=== PATIENT | female | born 1955 | race Caucasian/White ===

== ENCOUNTER → 2023-04-16 | Outpatient (CLI) | payer BC, OTHER, MEDICARE ==
--- NOTE | 2023-04-16 09:07 | MM ---
Reason for Exam: Follow-up at short interval from prior study. Last screening mammogram was performed 6 month(s) ago. Patient History: Menarche at age 9. Patient has no children. Postmenopausal. Paternal aunt had breast cancer. Risk Values: Clementine 5 year model risk: 2.1%. NCI Lifetime model risk: 6.7%. Prior Study Comparison: 10/09/2022 Bilateral MG 3D screening mammo w/cad, Unknown. 10/13/2022 Right MG 3D work up w/cad RT, Unknown. 10/13/2022 Right US breast workup limited RT - 2, Unknown. Tissue Density: Right: There are scattered fibroglandular densities. Findings: Analyzed By CAD. Slight nipple retraction is unchanged. Some scattered benign round and punctate calcifications are unchanged. Chronic nodularity upper outer quadrant anterior depth and posterior depth remains unchanged. Grouped heterogeneous microcalcifications approximately 10:00 middle depth appear to be increasing. Stereotactic biopsy is recommended. Overall Assessment: Incomplete: need additional imaging evaluation, BI-RAD 0 Management: Diagnostic Breast Ultrasound of the right breast. Electronically signed and approved by: Jesenia Cardenas M.D. Radiologist
--- NOTE | 2023-04-16 09:53 | USB ---
Reason for Exam: Follow-up at short interval from prior study. Patient History: Menarche at age 9. Patient has no children. Postmenopausal. Paternal aunt had breast cancer. Risk Values: Clementine 5 year model risk: 2.1%. NCI Lifetime model risk: 6.7%. Prior Study Comparison: 10/09/2022 Bilateral MG 3D screening mammo w/cad, Unknown. 10/13/2022 Right MG 3D work up w/cad RT, Unknown. 10/13/2022 Right US breast workup limited RT - 2, Unknown. Findings: The whole breast of the right breast, the axilla of the right breast and the retroareolar of the right breast were scanned. A complete US of all four quadrants of the breast common axilla, and retro-areolar region were reviewed. * At the 12:00 position, 8 cm from the nipple, there is a benign 4 mm cyst. * *At the subareolar region, just adjacent to the nipple, there is irregular hypoechoic mass with marginal vascularity measuring 1.3 x 1.3 x 1.1 cm for which biopsy is recommended. * *At the 12:00 position, also 8 cm from the nipple, there is a indeterminate 6 x 6 x 5 mm hypoechoic lesion. Unable to obtain posterior through transmission. This is the lesion that was seen on 10/13/2022 and measured 5 x 5 x 3 mm at that time. Biopsy is recommended. * No additional solid or cystic lesion. * Low axillary tail/intramammary lymph node 11:00 position measures 5 x 4 mm, likely corresponding to the chronic nodularity on mammogram. * No other solid or cystic lesion or axillary lymphadenopathy. Overall Assessment: Suspicious, BI-RAD 4 Management: Stereotactic Core Biopsy of the right breast. Ultrasound Core Biopsy of the right breast. (Total 3 site biopsy). Right-sided stereotactic core needle biopsy for upper-outer quadrant grouped microcalcifications. 2 site ultrasound guided core needle biopsy right breast. Results were given to the patient verbally at the time of exam. Electronically signed and approved by: Jesenia Cardenas M.D. Radiologist
== END | disposition home or self-care (01) ==
LOC: RADMAMWWP 08:35
PROVIDERS: ATTEND Surgery
DX: N60.01 Solitary cyst of right breast (principal); Z78.0 Asymptomatic menopausal state; Z80.3 Family history of malignant neoplasm of breast
CPT/HCPCS: 77061; 77065

== ENCOUNTER → 2023-05-04 | Day surgery (SDC) | payer BC, OTHER ==
--- NOTE | 2023-05-04 08:39 | P.PCN ---
Date of Procedure: 05/04/23 Preoperative Diagnosis: Microcalcifications of concern right breast Postoperative Diagnosis: Same Procedure(s) Performed: Right breast stereotactic core biopsy Anesthesia: local Surgeon: Sharona Lopez Pathology: other (Breast tissue with microcalcifications of concern) Condition: stable Disposition: same day Indications for Procedure: Microcalcifications of concern right breast upper outer quadrant Operative Findings: Radiograph of the specimen reveals microcalcifications of concern Description of Procedure: The patient is a 68-year-old white female who on a mammogram was noted to have upper outer quadrant right breast calcifications of concern. Stereotactic core biopsy was recommended. Risks and benefits of the procedure were discussed with the patient and she wished to proceed. Additionally there are 2 areas noted on ultrasound for which ultrasound-guided core biopsy has also been recommended. The patient was taken to the stereotactic core biopsy room. She was positioned prone on the lo-radtable. A lateral to medial approach was utilized. A sout film was obtained. The area of concern was identified. The lesion was targeted. The breast was prepped using Betadine. 20 mL of 0.5% lidocaine with epinephrine was used to anesthetize the area of concern. A 9-gauge vacuum- assisted core rotating biopsy needle was driven to the correct coordinates. A prefire film was obtained. The needle was noted to be in the correct location. The needle was fired. Post fire film was obtained and the needle was noted to be in the correct location. 14 core biopsy specimens were obtained. Radiograph of the specimens revealed microcalcifications of concern had been sampled. A secure niraj top hat clip was placed. The clip was noted to be in the correct location. The patient tolerated the procedure in stable condition. The specimen was sent to pathology. The patient will follow up with Dr. Ha next week.
== END ==
LOC: RADUSWWP 07:13
PROVIDERS: ATTEND Surgery
DX: Z53.9 Procedure and treatment not carried out, unspecified reason (principal)
CPT/HCPCS: 19084; 88305; 88342

== ENCOUNTER → 2023-05-04 | Day surgery (SDC) | payer BC, OTHER ==
[2023-05-04 07:34] VITALS: RESP 16
[2023-05-04 08:40] VITALS: BP 162/65; PULSE 54; TEMP 98.1
--- NOTE | 2023-05-07 10:09 | MM ---
Date of Procedure: 05/04/23 Preoperative Diagnosis: Microcalcifications of concern right breast Postoperative Diagnosis: Same Procedure(s) Performed: Right breast stereotactic core biopsy Anesthesia: local Surgeon: Sharona Lopez Pathology: other (Breast tissue with microcalcifications of concern) Condition: stable Disposition: same day Indications for Procedure: Microcalcifications of concern right breast upper outer quadrant Operative Findings: Radiograph of the specimen reveals microcalcifications of concern Description of Procedure: The patient is a 68-year-old white female who on a mammogram was noted to have upper outer quadrant right breast calcifications of concern. Stereotactic core biopsy was recommended. Risks and benefits of the procedure were discussed with the patient and she wished to proceed. Additionally there are 2 areas noted on ultrasound for which ultrasound-guided core biopsy has also been recommended. The patient was taken to the stereotactic core biopsy room. She was positioned prone on the lo-radtable. A lateral to medial approach was utilized. A sout film was obtained. The area of concern was identified. The lesion was targeted. The breast was prepped using Betadine. 20 mL of 0.5% lidocaine with epinephrine was used to anesthetize the area of concern. A 9-gauge vacuum- assisted core rotating biopsy needle was driven to the correct coordinates. A prefire film was obtained. The needle was noted to be in the correct location. The needle was fired. Post fire film was obtained and the needle was noted to be in the correct location. 14 core biopsy specimens were obtained. Radiograph of the specimens revealed microcalcifications of concern had been sampled. A secure niraj top hat clip was placed. The clip was noted to be in the correct location. The patient tolerated the procedure in stable condition. The specimen was sent to pathology. The patient will follow up with Dr. Ha next week. SIXTO
--- NOTE | 2023-05-10 09:00 | USB ---
Risk Values: Clementine 5 year model risk: 2.1%. NCI Lifetime model risk: 6.4%. Prior Study Comparison: 10/09/2022 Bilateral MG 3D screening mammo w/cad, Unknown. 10/13/2022 Right MG 3D work up w/cad RT, Unknown. 04/16/2023 Right MG 3D diag mammo w/cad RT, [facility]. Pathology Description: Location: 12 o'clock, upper outer quadrant, posterior. Marker Left Behind. Cores: 3 Skin Nicks: 1 Gauge: 13 The procedure of ultrasound guided core biopsy was explained to the patient. Benefits, alternatives, and risks were discussed. An informed consent was then obtained. The patient was placed in supine positioning for imaging and for the procedure. The overlying skin was prepped and draped in usual sterile fashion. Lidocaine buffered with bicarbonate was used as anesthetic into the skin and subcutaneous tissue up to areas of concern in the right breast at 12:00 8 cm from nipple and retroareolar region.. A haider was made with surgical scalpel. Under ultrasound guidance the lesion at 12:00 8 cm from the nipple was targeted, a 12-gauge vacuum assisted biopsy gun device was used to obtain 3 core samples. Following this, a biopsy butterfly clip was left in lesion. Next, Under ultrasound guidance the retroareolar lesion was targeted, a 12-gauge vacuum assisted biopsy gun device was used to obtain 6 core samples. Following this, a biopsy coil clip was left in lesion. The patient tolerated the procedure well without any immediate complication. The patient was kept in the radiology department for short stay after the procedure and then discharged home in stable condition. Postprocedure mammogram: The patient was transferred to mammography for physician ordered post procedure mammogram for clip placement verification. Impression: Successful, uncomplicated ultrasound guided core biopsy of area of concern in the right breast, full pathology results to follow. Pathology Results: A. RIGHT BREAST, 12:00 POSITION, CORE BIOPSY: Focal fibrocystic change and fibroadenomatoid hyperplasia with rare microcalcification and rare focus suggestive of atypical lobular hyperplasia (see note). Negative for diagnostic features of in situ or invasive carcinoma. B. RIGHT BREAST, POSTERIOR NIPPLE, CORE BIOPSY: Hypocellular and sclerotic bland fibroepithelial lesion having features compatible with fibroadenoma. Focal usual ductal hyperplasia seen. Current specimen negative for diagnostic in situ or invasive carcinoma (see note). Notes In order to confirm the diagnosis for specimen A, immunohistochemistry is performed with appropriate controls on the tissue block for specimen A. E-Cadherin staining is attempted on specimen A, but the minute and rare area suggestive of atypical lobular hyperplasia is mostly unavailable for evaluation, and E-cadherin stains background ductal cells. Clinical correlation with imaging studies is suggested, as deemed clinically appropriate. Correlation with breast biopsy case [id number] is suggested. Pathology Description: Location: middle, retroareolar. Marker Left Behind. Cores: 6 Skin Nicks: 1 Management: Repeat Biopsy of the right breast. High risk lesion, open biopsy. Electronically signed and approved by: DO SIXTO David
== END ==
LOC: RADMAMWWP 07:11
PROVIDERS: ATTEND Surgery
DX: N60.91 Unspecified benign mammary dysplasia of right breast (principal); N60.11 Diffuse cystic mastopathy of right breast
CPT/HCPCS: 19081; A4648; 88305; 88341; 88342

== ENCOUNTER → 2023-05-24 | Outpatient (CLI) | payer BC, OTHER, MEDICARE ==
[2023-05-24 13:52] VITALS: BP 173/50; PULSE 55; RESP 18; TEMP 97.9
--- NOTE | 2023-05-24 14:22 | P.PN ---
Subjective Progress Note Date: 05/24/23 Principal diagnosis: discordant ultrasound core biopsy right breast/atypical lobular hyperplasia right stero biopsy abnormal right breast mammogram and ultrasound; ultrasound core biopsy discordant, mammogram core biopsy atypical lobular hyperplasia Ashlie is a 68 year old white female seen initially in consultation for Dr. Licona regarding a radiographic abnormality in the right breast. She had a bilateral mammogram on 10-09-22; bilateral diagnostic mammograms were rec ommended. Returned on [id number] bilateral diagnostic mammogram. This showed the breast tissue to be heterogeneously dense with 2 well-circumscribed round oval masses in the posterior depth inner aspect left breast which were unchanged since 2016. In the right breast a 6 mm round circumscribed lesion persisted in the middle to posterior depth for which an ultrasound was recommended. Calcifications in the right breast were loosely grouped and felt to be not suspicious. Targeted ultrasound of the 12 o'clock position of the right breast revealed millimeter round hypoechoic avascular structure without posterior acoustic features. No convincing evidence for malignancy in either breast was identified Precautionary diagnostic right breast mammogram and ultrasound in 6 months was recommended. Was personally reviewed with Dr. Cardenas from radiology. The patient did not feel any new lumps masses or nodules of concern in either breast. She is complaining of some intermittent right nipple inversion. She is not complaining of any nipple discharge. 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 It was an open biopsy. She is not complaining of any infection or trauma in her breast. The patient on 04-16-23 underwent a right breast diagnositc mammogram and ultrasound. Stero biopay and ultrasound core biopsy recommended. These were done on 05-04-23. The patoholgy for the ultrasound core biopsy was discordant, reviewed with radiology and the stero biopsy atypical lobular hyperplasia. Tolerated the biopsies without difficulty. The genetic testing performed which showed a variant of on certain significance. We have discussed chemoprophylaxis and at this time the patient is waiting for the biopsy results from her needle localization and excision from the discordant lesion in the stereotactic core biopsy. Clementine risk 5 year 2.1% MCI lifetime risk: 6.7% Caffeine:3-4 cups of tea/day nicotine: none chocolate: daily BCP: none Family History: sister: pancreatic mother: pancreatic cancer father: lung brother: Lung, esophageal, brain, bladder smoker maternal grandmother: uterine Hormonal History: menarche: 9 G0 menopause: 56 hormone: none Surgical History: right breast biopsy Medical History: diabetic HTN Social History: nicotine: none alcohol: occasional drugs:none - Constitutional Constitutional: Denies chills, Denies fever - EENT Comment: cataract bilateral Eyes: denies blurred vision, denies pain Ears: deny: decreased hearing, tinnitus Ears, nose, mouth and throat: Denies headache, Denies sore throat - Breasts Breasts: bilateral: as per HPI - Cardiovascular Cardiovascular: Denies chest pain, Denies shortness of breath - Respiratory Respiratory: Denies cough - Gastrointestinal Gastrointestinal: Denies abdominal pain, Denies diarrhea, Denies nausea, Denies vomiting - Genitourinary (Female) Genitourinary: Denies dysuria, Denies hematuria - Menstruation Menstruation: Reports as per HPI - Musculoskeletal Musculoskeletal: Denies myalgias - Integumentary Integumentary: Denies pruritus, Denies rash - Neurological Neurological: Reports numbness, Denies weakness - Psychiatric Psychiatric: Denies anxiety, Denies depression - Endocrine Endocrine: Reports as per HPI - Hematologic/Lymphatic Comment: none - Allergic/Immunologic Allergic/Immunologic: Reports seasonal allergies Medications and Allergies Home Medications Medication Instructions Recorded Confirmed Type Aspirin [Children's Aspirin] 81 mg PO DAILY 02/02/23 02/02/23 History Atorvastatin [Lipitor] 40 mg PO DAILY 02/02/23 02/02/23 History Budesonide [Pulmicort] 1 spray NASAL DAILY 02/02/23 02/02/23 History Diltiazem Cd [Cardizem CD] 240 mg PO DAILY 02/02/23 02/02/23 History Levocetirizine Dihydrochloride 5 mg PO DAILY 02/02/23 02/02/23 History [Xyzal] Montelukast [Singulair] 10 mg PO DAILY 02/02/23 02/02/23 History Multivitamin/Iron/Folic Acid 1 tab PO DAILY 02/02/23 02/02/23 History [Centrum Adults Tablet] Pantoprazole Sodium 40 mg PO DAILY 02/02/23 02/02/23 History hydrALAZINE HCL 50 mg PO DAILY 02/02/23 02/02/23 History Objective - Vital Signs Vital signs: Vital Signs Temp 97.9 F 05/24/23 13:48 Pulse 55 L 05/24/23 13:48 Resp 18 05/24/23 13:48 BP 173/50 05/24/23 13:48 Pulse Ox 97 05/24/23 13:48 FiO2 Intake & Output 05/23/23 05/24/23 05/24/23 18:59 06:59 18:59 Weight 85.275 kg - Constitutional General appearance: Present: cooperative - EENT Eyes: Present: EOMI ENT: Present: hearing grossly normal - Neck Neck: Present: normal ROM - Respiratory Respiratory: bilateral: CTA - Cardiovascular Rhythm: regular Heart sounds: normal: S1, S2 - Gastrointestinal General gastrointestinal: Present: soft - Integumentary Integumentary: Present: normal turgor - Musculoskeletal Musculoskeletal: Present: gait normal - Psychiatric Psychiatric: Present: A&O x's 3, appropriate affect, intact judgment & insight - Additional findings Additional findings: Breast Exam: BRA: 42C Inspection: bilateral grade 2/3 ptosis palpation: right breast: Multi-positional exam dense breast fibrocystic changes no dominant masses or nodules of concern Right axilla: No adenopathy of concern Left breast: Multi-positional exam fibrocystic changes no dominant masses or nodules of concern Left axilla: No adenopathy of concern Assessment and Plan Assessment: Impression: Stereotactic core biopsy right breast atypical lobular hyperplasia Ultrasound core biopsy right breast discordant reviewed with radiology recommended needle local excision Plan: Needle localization and excisional biopsy of discordant lesion on ultrasound posterior to right nipple areolar complex Needle localization and excision of atypical lobular hyperplasia secondary to the fact that we will be doing surgery in the area for the lesion above We have discussed chemoprophylaxis probable await the results of the pathology Risks and benefits of the procedure discussed with the patient. Risks include but are not limited to bleeding, infection, reaction to the anesthetic. If this were to be discordant again with the margins were to be positive for malignancy further surgery may be necessary. The patient understands and wishes to proceed. CC: Dr. Licona
== END ==
LOC: WWCWWP 13:10
PROVIDERS: ATTEND Surgery
DX: E11.9 Type 2 diabetes mellitus without complications (principal); I10 Essential (primary) hypertension; Z85.3 Personal history of malignant neoplasm of breast

== ENCOUNTER → 2023-07-06 | Outpatient (CLI) | payer BC, OTHER ==
[2023-07-06 14:03] VITALS: BP 149/69; PULSE 56; RESP 16; TEMP 98.3
--- NOTE | 2023-07-06 14:06 | P.PN ---
Subjective Progress Note Date: 07/06/23 discordant ultrasound core biopsy right breast/atypical lobular hyperplasia right stero biopsy abnormal right breast mammogram and ultrasound; ultrasound core biopsy discordant, mammogram core biopsy atypical lobular hyperplasia Ashlie is a 68 year old white female seen initially in consultation for Dr. Licona regarding a radiographic abnormality in the right breast. She had a bilateral mammogram on 10-09-22; bilateral diagnostic mammograms were recommended. Returned on [id number] bilateral diagnostic mammogram. This showed the breast tissue to be heterogeneously dense with 2 well-circumscribed round oval masses in the posterior depth inner aspect left breast which were unchanged since 2016. In the right breast a 6 mm round circumscribed lesion persisted in the middle to posterior depth for which an ultrasound was recommended. Calcifications in the right breast were loosely grouped and felt to be not suspicious. Targeted ultrasound of the 12 o'clock position of the right breast revealed millimeter round hypoechoic avascular structure without posterior acoustic features. No convincing evidence for malignancy in either breast was identified Precautionary diagnostic right breast mammogram and ultrasound in 6 months was recommended. Was personally reviewed with Dr. Cardenas from radiology. The patient did not feel any new lumps masses or nodules of concern in either breast. She is complaining of some intermittent right nipple inversion. She is not complaining of any nipple discharge. 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 It was an open biopsy. She is not complaining of any infection or trauma in her breast. The patient on 04-16-23 underwent a right breast diagnositc mammogram and ultrasound. Stero biopay and ultrasound core biopsy recommended. These were done on 05-04-23. The patoholgy for the ultrasound core biopsy was discordant, reviewed with radiology and the stero biopsy atypical lobular hyperplasia. Tolerated the biopsies without difficulty. The genetic testing performed which showed a variant of on certain significance. We have discussed chemoprophylaxis and at this time the patient is waiting for the biopsy results from her needle localization and excision from the discordant lesion and the stereotactic core biopsy. [place] risk 5 year 2.1% MCI lifetime risk: 6.7% Caffeine:3-4 cups of tea/day nicotine: none chocolate: daily BCP: none Family History: sister: pancreatic mother: pancreatic cancer father: lung brother: Lung, esophageal, brain, bladder smoker maternal grandmother: uterine Hormonal History: menarche: 9 G0 menopause: 56 hormone: none Surgical History: right breast biopsy Medical History: diabetic HTN Social History: nicotine: none alcohol: occasional drugs:none - Constitutional Constitutional: Denies chills, Denies fever - EENT Comment: cataract bilateral Eyes: denies blurred vision, denies pain Ears: deny: decreased hearing, tinnitus Ears, nose, mouth and throat: Denies headache, Denies sore throat - Breasts Breasts: bilateral: as per HPI - Cardiovascular Cardiovascular: Denies chest pain, Denies shortness of breath - Respiratory Respiratory: Denies cough - Gastrointestinal Gastrointestinal: Denies abdominal pain, Denies diarrhea, Denies nausea, Denies vomiting - Genitourinary (Female) Genitourinary: Denies dysuria, Denies hematuria - Menstruation Menstruation: Reports as per HPI - Musculoskeletal Musculoskeletal: Denies myalgias - Integumentary Integumentary: Denies pruritus, Denies rash - Neurological Neurological: Reports numbness, Denies weakness - Psychiatric Psychiatric: Denies anxiety, Denies depression - Endocrine Endocrine: Reports as per HPI - Hematologic/Lymphatic Comment: none - Allergic/Immunologic Allergic/Immunologic: Reports seasonal allergies Medications and Allergies Home Medications Medication Instructions Recorded Confirmed Type Aspirin [Children's Aspirin] 81 mg PO DAILY 02/02/23 02/02/23 History Atorvastatin [Lipitor] 40 mg PO DAILY 02/02/23 02/02/23 History Budesonide [Pulmicort] 1 spray NASAL DAILY 02/02/23 02/02/23 History Diltiazem Cd [Cardizem CD] 240 mg PO DAILY 02/02/23 02/02/23 History Levocetirizine Dihydrochloride 5 mg PO DAILY 02/02/23 02/02/23 History [Xyzal] Montelukast [Singulair] 10 mg PO DAILY 02/02/23 02/02/23 History Multivitamin/Iron/Folic Acid 1 tab PO DAILY 02/02/23 02/02/23 History [Centrum Adults Tablet] Pantoprazole Sodium 40 mg PO DAILY 02/02/23 02/02/23 History hydrALAZINE HCL 50 mg PO DAILY 02/02/23 02/02/23 History Objective - Vital Signs Vital signs: Intake & Output 07/05/23 07/06/23 07/06/23 18:59 06:59 18:59 Weight 84.822 kg - Constitutional General appearance: Present: cooperative - EENT Eyes: Present: EOMI ENT: Present: hearing grossly normal - Neck Neck: Present: normal ROM - Respiratory Respiratory: bilateral: CTA - Cardiovascular Heart sounds: normal: S1, S2 - Gastrointestinal General gastrointestinal: Present: soft - Integumentary Integumentary: Present: normal turgor - Musculoskeletal Musculoskeletal: Present: gait normal - Psychiatric Psychiatric: Present: A&O x's 3, appropriate affect, intact judgment & insight - Additional findings Additional findings: Breast Exam: BRA: 42C Inspection: bilateral grade 2/3 ptosis palpation: right breast: Multi-positional exam dense breast fibrocystic changes no dominant masses or nodules of concern Right axilla: No adenopathy of concern Left breast: Multi-positional exam fibrocystic changes no dominant masses or nodules of concern Left axilla: No adenopathy of concern Assessment and Plan Assessment: Impression: Stereotactic core biopsy right breast atypical lobular hyperplasia Ultrasound core biopsy right breast discordant reviewed with radiology recommended needle local excision Plan: Needle localization and excisional biopsy of discordant lesion on ultrasound posterior to right nipple areolar complex Needle localization and excision of atypical lobular hyperplasia secondary to the fact that we will be doing surgery in the area for the lesion above We have discussed chemoprophylaxis probable await the results of the pathology Risks and benefits of the procedure discussed with the patient. Risks include but are not limited to bleeding, infection, reaction to the anesthetic. If this were to be discordant again with the margins were to be positive for malignancy further surgery may be necessary. The patient understands and wishes to edgar dJimmy Medical clearance Dr. Licona CC: Dr. Licona
--- NOTE | 2023-07-06 14:10 | P.PN ---
Progress Note - Text Progress Note Date: 07/06/23 Dear [place] on aging, Please note that Ashlie Kirby is undergoing surgery on 5250. She will be able to return to work on 9823. Thank you, Dr. Sharona Lopez
== END ==
LOC: WWCWWP 13:31
PROVIDERS: ATTEND Surgery
DX: N60.91 Unspecified benign mammary dysplasia of right breast (principal); E11.9 Type 2 diabetes mellitus without complications; I10 Essential (primary) hypertension; Z85.3 Personal history of malignant neoplasm of breast

== ENCOUNTER → 2023-07-31 | Day surgery (SDC) | payer BC, OTHER ==
--- NOTE | 2023-07-26 14:19 | P.PN ---
Subjective Progress Note Date: 07/26/23 discordant ultrasound core biopsy right breast/atypical lobular hyperplasia right stero biopsy abnormal right breast mammogram and ultrasound; ultrasound core biopsy discordant, mammogram core biopsy atypical lobular hyperplasia Ashlie is a 68 year old white female seen initially in consultation for Dr. Licona regarding a radiographic abnormality in the right breast. She had a bilateral mammogram on 10-09-22; bilateral diagnostic mammograms were recommended. Returned on [id number] bilateral diagnostic mammogram. This showed the breast tissue to be heterogeneously dense with 2 well-circumscribed round oval masses in the posterior depth inner aspect left breast which were unchanged since 2016. In the right breast a 6 mm round circumscribed lesion persisted in the middle to posterior depth for which an ultrasound was recommended. Calcifications in the right breast were loosely grouped and felt to be not suspicious. Targeted ultrasound of the 12 o'clock position of the right breast revealed millimeter round hypoechoic avascular structure without posterior acoustic features. No convincing evidence for malignancy in either breast was identified Precautionary diagnostic right breast mammogram and ultrasound in 6 months was recommended. Was personally reviewed with Dr. Cardenas from radiology. The patient did not feel any new lumps masses or nodules of concern in either breast. She is complaining of some intermittent right nipple inversion. She is not complaining of any nipple discharge. 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 It was an open biopsy. She is not complaining of any infection or trauma in her breast. The patient on 04-16-23 underwent a right breast diagnositc mammogram and ultrasound. Stero biopay and ultrasound core biopsy recommended. These were done on 05-04-23. The patoholgy for the ultrasound core biopsy was discordant, reviewed with radiology and the stero biopsy atypical lobular hyperplasia. Tolerated the biopsies without difficulty. The genetic testing performed which showed a variant of on certain significance. We have discussed chemoprophylaxis and at this time the patient is waiting for the biopsy results from her needle localization and excision from the discordant lesion and the stereotactic core biopsy. Clementine risk 5 year 2.1% MCI lifetime risk: 6.7% Caffeine:3-4 cups of tea/day nicotine: none chocolate: daily BCP: none Family History: sister: pancreatic mother: pancreatic cancer father: lung brother: Lung, esophageal, brain, bladder smoker maternal grandmother: uterine Hormonal History: menarche: 9 G0 menopause: 56 hormone: none Surgical History: right breast biopsy Medical History: diabetic HTN Social History: nicotine: none alcohol: occasional drugs:none - Constitutional Constitutional: Denies chills, Denies fever - EENT Comment: cataract bilateral Eyes: denies blurred vision, denies pain Ears: deny: decreased hearing, tinnitus Ears, nose, mouth and throat: Denies headache, Denies sore throat - Breasts Breasts: bilateral: as per HPI - Cardiovascular Cardiovascular: Denies chest pain, Denies shortness of breath - Respiratory Respiratory: Denies cough - Gastrointestinal Gastrointestinal: Denies abdominal pain, Denies diarrhea, Denies nausea, Denies vomiting - Genitourinary (Female) Genitourinary: Denies dysuria, Denies hematuria - Menstruation Menstruation: Reports as per HPI - Musculoskeletal Musculoskeletal: Denies myalgias - Integumentary Integumentary: Denies pruritus, Denies rash - Neurological Neurological: Reports numbness, Denies weakness - Psychiatric Psychiatric: Denies anxiety, Denies depression - Endocrine Endocrine: Reports as per HPI - Hematologic/Lymphatic Comment: none - Allergic/Immunologic Allergic/Immunologic: Reports seasonal allergies Medications and Allergies Home Medications Medication Instructions Recorded Confirmed Type Aspirin [Children's Aspirin] 81 mg PO DAILY 02/02/23 02/02/23 History Atorvastatin [Lipitor] 40 mg PO DAILY 02/02/23 02/02/23 History Budesonide [Pulmicort] 1 spray NASAL DAILY 02/02/23 02/02/23 History Diltiazem Cd [Cardizem CD] 240 mg PO DAILY 02/02/23 02/02/23 History Levocetirizine Dihydrochloride 5 mg PO DAILY 02/02/23 02/02/23 History [Xyzal] Montelukast [Singulair] 10 mg PO DAILY 02/02/23 02/02/23 History Multivitamin/Iron/Folic Acid 1 tab PO DAILY 02/02/23 02/02/23 History [Centrum Adults Tablet] Pantoprazole Sodium 40 mg PO DAILY 02/02/23 02/02/23 History hydrALAZINE HCL 50 mg PO DAILY 02/02/23 02/02/23 History Objective - Constitutional General appearance: Present: cooperative - EENT Eyes: Present: EOMI ENT: Present: hearing grossly normal - Neck Neck: Present: normal ROM - Respiratory Respiratory: bilateral: CTA - Cardiovascular Rhythm: regular Heart sounds: normal: S1, S2 - Integumentary Integumentary: Present: normal - Musculoskeletal Musculoskeletal: Present: gait normal - Psychiatric Psychiatric: Present: A&O x's 3, appropriate affect, intact judgment & insight - Additional findings Additional findings: Breast Exam: BRA: 42C Inspection: bilateral grade 2/3 ptosis palpation: right breast: Multi-positional exam dense breast fibrocystic changes no dominant masses or nodules of concern Right axilla: No adenopathy of concern Left breast: Multi-positional exam fibrocystic changes no dominant masses or nodules of concern Left axilla: No adenopathy of concern Assessment and Plan Assessment: Impression: Stereotactic core biopsy right breast atypical lobular hyperplasia Ultrasound core biopsy right breast discordant reviewed with radiology recommended needle local excision Plan: Needle localization and excisional biopsy of discordant lesion on ultrasound posterior to right nipple areolar complex Needle localization and excision of atypical lobular hyperplasia on stereotactic core biopsy right breast secondary to the fact that we will be doing surgery in the area for the lesion above We have discussed chemoprophylaxis probable await the results of the pathology Risks and benefits of the procedure discussed with the patient. Risks include but are not limited to bleeding, infection, reaction to the anesthetic. If this were to be discordant again or the margins were to be positive for malignancy further surgery may be necessary. The patient understands and wishes to proceed. Medical clearance Dr. Licona CC: Dr. Licona Additional CC's: William Licona
[~2023-07-31] MED LIST: ALPRAZolam 0.25 MG TAB ONE; DEXAMETHASONE SOD PHOSPHATE 4 MG/ML 1 ML VIAL IVP ONE; HEPARIN SODIUM,PORCINE/PF 5,000 UNIT/0.5 ML SYRINGE SQ PRN; HYDROmorphone (PF) 1 MG/ML ONE; HYDROmorphone 0.5 MG/0.5 ML SYRINGE IVP PRN; KETOROLAC 15 MG/ML 1 ML VIAL ONE; LACTATED RINGERS 1,000 ML IV ONE; LACTATED RINGERS 1,000 ML IV SCH; LIDOCAINE 1% (10MG/ML) FOR IV START INTRADERMA PRN; LIDOCAINE 1% INJ 10MG/ML (20 ML MDV) SQ ONE; LIDOCAINE 2% INJ 20 MG/ML (2 ML VIAL) ONE; MIDAZOLAM 2 MG/2 ML VIAL ONE; ONDANSETRON 4 MG/2 ML VIAL IVP ONE; ONDANSETRON 4 MG/2 ML VIAL ONE; PHENYLEPHRINE-0.9% NACL SYG 1,000 MCG/10 ML SYRINGE ONE; PROPOFOL 10 MG/ML 20 ML VIAL IV ONE; fentaNYL (PF) 50 MCG/ML 2 ML AMP ONE
[2023-07-31 11:19] VITALS: RESP 16
[2023-07-31 12:46] LABS: Glucose,Whole Blood 115 mg/dL (70-110)
--- NOTE | 2023-07-31 15:33 | P.OP ---
Date of Procedure: 07/31/23 Preoperative Diagnosis: Atypical lobular hyperplasia 2 sites right breast, discordant core biopsy posterior area right breast Postoperative Diagnosis: Same Procedure(s) Performed: Needle localization superior and lateral area of atypical hyperplasia right breast with placement of make C, needle localization via ultrasound on the posterior areolar area right breast Anesthesia: JORGE AA Surgeon: Sharona Lopez Estimated Blood Loss (ml): 8 IV fluids (ml): 1,000 Pathology: other (Breast tissue removed 3 sites right breast lateral superior and posterior) Condition: stable Disposition: same day Indications for Procedure: Sites right breast atypical lobular hyperplasia, post aerolar biopsy discordant Operative Findings: Fibrofatty breast tissue Description of Procedure: The patient is a 68-year-old white female status post area biopsy of 2 areas in the right breast which revealed atypical lobular hyperplasia. Additionally a posterior aerolar areawas sampled which was felt to be discordan t. Recommendation was for needle localization and excisional biopsy of the areas of atypical lobular hyperplasia as well as the discordant right posterior areolar area. Preoperatively she was seen in the radiology department where needle localization of the areas were performed as well as mag seed placement in the lateral and superior peripheral lesions. The patient was then brought to the operative suite. Following induction of anesthesia the right breast was prepped and draped in a sterile fashion. A periareolar incision was made. The needle which had been placed by ultrasound localization was identified and circumferential dissection was performed. Ultrasound of the specimen revealed the area of concern had been removed. The same incision was utilized and using the mag seed probe the area of increased activity in the lateral breast was identified. The area was grasped using an Allis clamp. The needle was brought out into the incision. The needle and the area were resected. Radiograph revealed that the lesion and the needle and the clip were all removed. Following this the superior lesion was approached. Using the mag seed probe the area of greatest activity was identified and this area was excised. Upon excision the clip was not identified. We will therefore obtain more tissue.
--- NOTE | 2023-07-31 16:14 | P.DS ---
Providers Attending physician: Sharona Lopez Primary care physician: William Licona Plan - Discharge Summary Discharge Rx Participant: No New Discharge Prescriptions: New HYDROcodone/APAP 5-325MG [[place] 5] 1 - 2 each PO Q6HR PRN #20 tab PRN Reason: Pain No Action hydrALAZINE HCL 50 mg PO BID Pantoprazole Sodium 40 mg PO BID Budesonide [Pulmicort] 1 spray NASAL DAILY Aspirin [Children's Aspirin] 81 mg PO HS Multivitamin/Iron/Folic Acid [Centrum Adults Tablet] 1 tab PO QAM Montelukast [Singulair] 10 mg PO HS Diltiazem Cd [Cardizem CD] 240 mg PO QAM Atorvastatin [Lipitor] 40 mg PO HS Discharge Medication List Aspirin [Children's Aspirin] 81 mg PO HS 02/02/23 [History] Atorvastatin [Lipitor] 40 mg PO HS 02/02/23 [History] Budesonide [Pulmicort] 1 spray NASAL DAILY 02/02/23 [History] Diltiazem Cd [Cardizem CD] 240 mg PO QAM 02/02/23 [History] Montelukast [Singulair] 10 mg PO HS 02/02/23 [History] Multivitamin/Iron/Folic Acid [Centrum Adults Tablet] 1 tab PO QAM 02/02/23 [History] Pantoprazole Sodium 40 mg PO BID 02/02/23 [History] hydrALAZINE HCL 50 mg PO BID 02/02/23 [History] HYDROcodone/APAP 5-325MG [[place] 5] 1 - 2 each PO Q6HR PRN #20 tab 07/31/23 [Rx] Follow up Appointment(s)/Referral(s): Sharona Lopez MD [STAFF PHYSICIAN] - 08/09/23 4:00 pm Activity/Diet/Wound Care/Special Instructions: do not drive for 24 hours from discharge, do not drive if taking narcotic pain medicine may shower after 48 hours wear bra at all times Discharge Disposition: HOME SELF-CARE
[2023-07-31 16:40] VITALS: TEMP 97.5
[2023-07-31 18:21] VITALS: BP 159/73; PULSE 74
--- NOTE | 2023-08-07 10:29 | MM ---
Risk Values: Clementine 5 year model risk: 6.1%. NCI Lifetime model risk: 17.6%. Pathology Description: Location: retroareolar. Needle Type: 7 cm Kopan Pathology Description: Approach: Lateral to Medial Needle Type: 9 cm Kopan MAG SEED SKIN MARKED WITH 2 BBS...SITE B. Pathology Description: Location: middle. Approach: CC FA Needle Type: 9 cm Kopan The procedure of needle localization with wire placement and than surgical excision was explained to the patient. Benefits, alternatives, and risks were discussed. An informed consent was then obtained. The pathology that was targeted includes 1) Lateral TopHat clip at the site of biopsy-proven ALH. 2) 12:00 butterfly clip at the site of biopsy-proven ALH. 3) Subareolar coil clip at the biopsy proven fibroadenoma that has a suspicious ultrasound appearance. 1) The shortest pathway for procedure was chosen. Shortest pathway was a lateral approach. The overlying skin was prepped and draped in usual sterile fashion. Lidocaine was used as anesthetic into the skin and subcutaneous tissue up to the level of area of concern. A 7 cm needle was used parallel with a magnetic seed marker. They were placed via a lateral approach under mammographic guidance. Subsequent 90 degrees mammogram show the needle to be in satisfactory position relative to the targeted area. At this point, wire/seed was placed and the needle was withdrawn. The wire was fixed to patient's skin. Images were marked for surgeon. Targeted seed, TopHat clip, and wire are identified in the specimen mammogram. 2) The shortest pathway for procedure was chosen. Shortest pathway was superior approach. The overlying skin was prepped and draped in usual sterile fashion. Lidocaine was used as anesthetic into the skin and subcutaneous tissue up to the level of area of concern. A 12 cm needle was used in conjunction with a magnetic seed marker. They were placed via a superior approach under mammographic guidance. Subsequent 90 degrees mammogram show the needle to be in satisfactory position relative to the targeted area. At this point, the wire/seed were placed and the needle was withdrawn. The wire was fixed to patient's skin. Images were marked for surgeon. Targeted seed and wire are identified in the specimen mammogram. The butterfly clip was not identified. 2 additional specimens were submitted and show no clip. Results were relayed to the OR. Decision is made to perform four-month follow-up mammogram for close surveillance. 3) A lateral approach was utilized to be ultrasound guidance and a 7 cm Kopan's needle was placed through the subareolar mass. The overlying skin was prepped and draped in usual sterile fashion. Lidocaine was used as anesthetic into the skin and subcutaneous tissue up to the level of area of concern. At this point, wire was placed and the needle was withdrawn. The wire was fixed to patient's skin. Images were marked for surgeon. Targeted mass, coil clip, and wire are present within the specimen mammogram. The patient tolerated the procedure well without any immediate complication. The patient was kept in the radiology department for short stay after the procedure and then taken to surgery for surgical excision. The patient was kept in hospital for short stay after the procedure and then discharged home in stable condition. IMPRESSION: Successful, uncomplicated needle localization with wire placement and surgical excision: 1. Lateral ALH/TopHat clip 2. 12:00 ALH/Butterfly clip (note that the clip was not found in the multiple submitted specimens. Decision is made to perform a 4 month follow-up surveillance mammogram). 3. Subareolar Fibroadenoma/Coil clip Full pathology results to follow. Pathology Results: Result: Benign, Fibrocystic change. A. 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 Background fibrocystic changes and previous biopsy site. B. LATERAL LESION RIGHT BREAST, NEEDLE LOCALIZATION EXCISION: Benign breast with fibrocystic changes including moderate to florid usual type ductal hyperplasia, previous biopsy site and a small intraductal papilloma not involving the margin. C. SUPERIOR LESION RIGHT BREAST, NEEDLE LOCALIZATION EXCISION: Nodular scar with fat necrosis, chronic inflammation, histiocytes and calcifications. Background fibrocystic changes including moderate to florid usual type ductal hyperplasia and fibroadenoma. Negative for malignancy. D. ADDITIONAL SUPERIOR LESION RIGHT BREAST, EXCISION: Benign breast tissue with fibrocystic changes. E. ADDITIONAL BREAST TISSUE, RIGHT BREAST, EXCISION: Benign breast tissue with focal scar/fat necrosis, inflammation and background fibrocystic changes. Overall Assessment: Benign Management: Diagnostic Mammogram of the right breast in 6 months. Electronically signed and approved by: Jesenia Cardenas M.D. Radiologist
== END | disposition home or self-care (01) ==
LOC: OR 09:27
PROVIDERS: ATTEND Surgery
DX: D24.1 Benign neoplasm of right breast (principal); N60.91 Unspecified benign mammary dysplasia of right breast; I10 Essential (primary) hypertension; E78.5 Hyperlipidemia, unspecified; K21.9 Gastro-esophageal reflux disease without esophagitis; N64.1 Fat necrosis of breast; L90.5 Scar conditions and fibrosis of skin; Z85.3 Personal history of malignant neoplasm of breast; Z79.82 Long term (current) use of aspirin; Z79.899 Other long term (current) drug therapy; Z79.84 Long term (current) use of oral hypoglycemic drugs
CPT/HCPCS: 88307; 76098; 19285; C1819 ×2; J2250; J1100; J0690; J2405; J2001 ×2; J3010; J1170; J1885; J2704; J1644; J2371

== ENCOUNTER → 2023-08-09 | Outpatient (CLI) | payer BC, OTHER ==
--- NOTE | 2023-08-09 10:53 | P.PN ---
Progress Note - Text Progress Note Date: 08/09/23 Ashlie is a 68-year-old white female status post needle localization of 3 areas of concern in the right breast on 9522. The areas were localized with both needle localization and may exceed localization. A lateral top clip at the site of biopsy-proven ALH was localized A 12:00 butterfly clip at the site of biopsy-proven ALH was localized In the subareolar "clip at the previously proven fibroadenoma that was suspicious on ultrasound appearance was localized The patient at the time of surgery had the following findings Periareolar lesion right breast needle localization excision fibroadenoma focally involved lobular neoplasia ALH/LCIS no invasive cancer Lateral breast lesion benign breast with fibrocystic change including moderate to focal usual type ductal hyperplasia, biopsy site was noted and a small intraductal papilloma not involving the margin was seen Superior lesion right breast needle localization excision revealed removal of the needle as well as the mag clip but the localizing clip was not noted in the specimen several additional tissue excisions were performed without identification of the clip. This tissue was all negative for malignancy although it did show nodular scar with fat necrosis. She is not complaining of any fever or chills but she does have some swelling and some oozing from the site of the excision in the right breast. Does have some mild erythema at the lateral aspect of the breast. Examination: Lungs: Clear Heart: Regular rate and rhythm Incision: Is clean and dry Right breast is swollen no some mild erythema Plan: Attempted aspiration of the swelling in the right breast Antibiotic Follow-up in 1 week CC: Dr. Licona
[2023-08-09 16:02] VITALS: BP 168/68; PULSE 61; RESP 16; TEMP 98
== END ==
LOC: WWCWWP 09:58
PROVIDERS: ATTEND Surgery
DX: N60.91 Unspecified benign mammary dysplasia of right breast (principal); N64.59 Other signs and symptoms in breast; Z85.3 Personal history of malignant neoplasm of breast
CPT/HCPCS: 87070; 87075; 87205

== ENCOUNTER → 2023-08-16 | Outpatient (CLI) | payer BC, OTHER ==
[2023-08-16 08:30] VITALS: BP 158/67; PULSE 73; RESP 17; TEMP 97.9
--- NOTE | 2023-08-16 08:37 | P.PN ---
Progress Note - Text Progress Note Date: 08/16/23 Ashlie is a 68-year-old white female status post needle localization of 3 areas of concern in the right breast on 9522. The areas were localized with both needle localization and mag seed localization. A lateral top hat clip at the site of biopsy-proven ALH was localized A 12:00 butterfly clip at the site of biopsy-proven ALH was localized In the subareolar aclip at the previously proven fibroadenoma that was suspicious on ultrasound appearance was localized The patient at the time of surgery had the following findings Periareolar lesion right breast needle localization excision fibroadenoma focally involved lobular neoplasia ALH/LCIS no invasive cancer Lateral breast lesion benign breast with fibrocystic change including moderate to focal usual type ductal hyperplasia, biopsy site was noted and a small intraductal papilloma not involving the margin was seen Superior lesion right breast needle localization excision revealed removal of the needle as well as the mag clip but the localizing clip was not noted in the specimen several additional tissue excisions were performed without identification of the clip. This tissue was all negative for malignancy although it did show nodular scar with fat necrosis. She is not complaining of any fever or chills but she did have some swelling and some oozing from the site of the excision in the right breast. Does have some mild erythema at the lateral aspect of the breast. aspiration of a seroma 280 cc on 08-09-23 was preformed Examination: Lungs: Clear Heart: Regular rate and rhythm Incision: Is clean and dry Right breast decreased swelling, no erythema Plan: Attempted aspiration of the swelling in the right breast Antibiotic completed Follow-up in 1 week Following informed consent aspiration of the right seroma was performed. The area was prepped using alcohol. A 20 mL syringe with an 18-gauge needle was inserted into the area of concern. Approximately 60 mL of fluid was removed, the fluid appeared to be old hematoma. The patient tolerated the procedure without difficulty Steri-Strips were removed. There is some erythema at the site underneath the Steri-Strips believed to be reaction to the tape. Patient is doing well at this time. CC: Dr. Licona
--- NOTE | 2023-08-16 08:38 | P.PN ---
Progress Note - Text Progress Note Date: 08/16/23 To Whom It May Concern: Ashlie Kirby underwent surgery on 9522. At this time she is cleared to return to work without restrictions. Dr. Luz Roque
== END ==
LOC: WWCWWP 08:16
PROVIDERS: ATTEND Surgery
DX: N63.10 Unspecified lump in the right breast, unspecified quadrant (principal); N64.89 Other specified disorders of breast

== ENCOUNTER → 2023-10-11 | Outpatient (CLI) | payer BC, OTHER ==
--- NOTE | 2023-10-11 11:06 | P.PN ---
Progress Note - Text Progress Note Date: 10/11/23 Ashlie is a 68-year-old white female status post needle localization of 3 areas of concern in the right breast on 9522. The areas were localized with both needle localization and mag seed localization. A lateral top hat clip at the site of biopsy-proven ALH was localized A 12:00 butterfly clip at the site of biopsy-proven ALH was localized In the subareolar a clip at the previously proven fibroadenoma that was suspicious on ultrasound appearance was localized The patient at the time of surgery had the following findings Periareolar lesion right breast needle localization excision fibroadenoma focally involved lobular neoplasia ALH/LCIS no invasive cancer Lateral breast lesion benign breast with fibrocystic change including moderate to focal usual type ductal hyperplasia, biopsy site was noted and a small intraductal papilloma not involving the margin was seen Superior lesion right breast needle localization excision revealed removal of the needle as well as the mag clip but the localizing clip was not noted in the specimen several additional tissue excisions were performed without identification of the clip. This tissue was all negative for malignancy although it did show nodular scar with fat necrosis. She is not complaining of any fever or chills Erythema has resolved Patient was diagnosed with COVID August 16. aspiration of a seroma 280 cc on 08-09-23 was preformed aspiration of seroma 08-16-23 60 ml old hematoma Patient has seen Dr. Fall and is presently on tamoxifen. She is tolerating this without difficulty. Examination: Lungs: Clear Heart: Regular rate and rhythm Incision: Is clean and dry Right breast seroma, no erythema Following informed consent aspiration of the seroma is performed. The area was prepped using alcohol. An 18-gauge needle on a 20 mL syringe was inserted into the area of concern. 8 mL of serous fluid was obtained. No further fluid was obtained. There may be loculated fluid. Plan: Right breast mammogram and ultrasound on October 26 Patient to follow up after this CC: Dr. Licona Additional CC's: William Licona
== END ==
LOC: WWCWWP 10:46
PROVIDERS: ATTEND Surgery
DX: Z04.89 Encounter for examination and observation for other specified reasons (principal); N60.11 Diffuse cystic mastopathy of right breast; N62 Hypertrophy of breast; Z86.16 Personal history of COVID-19

== ENCOUNTER → 2023-10-26 | Outpatient (CLI) | payer BC, OTHER ==
--- NOTE | 2023-10-26 13:04 | MM ---
Reason for Exam: Clinical finding. Last mammogram was performed 1 year(s) and 1 month(s) ago. Patient History: Menarche at age 9. Patient has no children. Postmenopausal. Previous Atypical Lobular Hyperplasia at age 68. 07/31/2023, US breast localization RT on the Right side. 07/31/2023, MG pre op needle loc RT on the Right side. 07/31/2023, Benign MG pre op needle loc RT on the right side. 05/04/2023, US biopsy breast VAD RT on the Right side. 05/04/2023, US biopsy breast add'l VAD RT on the Right side. 05/04/2023, High risk MG stereo VAD BX RT on the right side. Paternal aunt had breast cancer. Risk Values: Clementine 5 year model risk: 6.1%. NCI Lifetime model risk: 17.6%. Prior Study Comparison: 10/09/2022 Bilateral MG 3D screening mammo w/cad, Unknown. 10/13/2022 Right MG 3D work up w/cad RT, Unknown. 04/16/2023 Right MG 3D diag mammo w/cad RT, [facility]. Tissue Density: Right: The breast tissue is heterogeneously dense. This may lower the sensitivity of mammography. Findings: Analyzed By CAD. Postprocedural changes to the right breast with surgical clips in pulmonary parenchymal stations. No new suspicious masses, calcifications or distortions. Overall Assessment: Benign, BI-RAD 2 Management: Screening Mammogram of the right breast in 1 year. Results were given to the patient verbally at the time of exam. Patient should continue monthly self-breast exams. A clinical breast exam by your physician is recommended on an annual basis. This exam should not preclude additional follow-up of suspicious palpable abnormalities. Note on Clementine scores and lifetime risk: 1. A Clementine score greater than 3% is considered moderate risk. If this is the case, consider specialist referral to assess eligibility for a risk reducing agent. 2. If overall lifetime risk for the development of breast cancer is 20% or higher, the patient may qualify for future screening with alternating mammogram and breast MRI. Electronically signed and approved by: William Couch DO
--- NOTE | 2023-10-26 13:29 | P.PN ---
Progress Note - Text Progress Note Date: 10/26/23 Ashlie is a 68-year-old white female status post needle localization of 3 areas of concern in the right breast on 9522. The areas were localized with both needle localization and mag seed localization. A lateral top hat clip at the site of biopsy-proven ALH was localized A 12:00 butterfly clip at the site of biopsy-proven ALH was localized In the subareolar a clip at the previously proven fibroadenoma that was suspicious on ultrasound appearance was localized The patient at the time of surgery had the following findings Periareolar lesion right breast needle localization excision fibroadenoma focally involved lobular neoplasia ALH/LCIS no invasive cancer Lateral breast lesion benign breast with fibrocystic change including moderate to focal usual type ductal hyperplasia, biopsy site was noted and a small intraductal papilloma not involving the margin was seen Superior lesion right breast needle localization excision revealed removal of the needle as well as the mag clip but the localizing clip was not noted in the specimen several additional tissue excisions were performed without identification of the clip. This tissue was all negative for malignancy although it did show nodular scar with fat necrosis. She is not complaining of any fever or chills Erythema has resolved Patient was diagnosed with COVID August 16. aspiration of a seroma 280 cc on 08-09-23 was preformed aspiration of seroma 08-16-23 60 ml old hematoma 10-11-23 aspiration of seroma 8 cc Patient has seen Dr. Fall and is presently on tamoxifen. She is tolerating this without difficulty. Examination: Lungs: Clear Heart: Regular rate and rhythm Incision: Is clean and dry Right breast seroma, no erythema right breast mammogram on 10-26-23 BIRAD 2; some concern that a superior clip may still be in the breast the radiologist is not here for review of this at the present time Plan: bilateral mammogram March 2024 with appointment at that time Patient to follow up after this CC: Dr. Licona Additional CC's: William Licona
== END | disposition home or self-care (01) ==
LOC: RADMAMWWP 12:43
PROVIDERS: ATTEND Surgery
DX: R92.331 Mammographic heterogeneous density, right breast (principal); Z78.0 Asymptomatic menopausal state; Z80.3 Family history of malignant neoplasm of breast
CPT/HCPCS: 77061; 77065

== ENCOUNTER → 2023-10-26 | Outpatient (CLI) | payer BC, OTHER ==
[2023-10-26 13:57] VITALS: BP 169/69; PULSE 69; RESP 17; TEMP 97.8
== END ==
LOC: WWCWWP 12:44
PROVIDERS: ATTEND Surgery
DX: N62 Hypertrophy of breast (principal); E11.9 Type 2 diabetes mellitus without complications; I10 Essential (primary) hypertension; E78.5 Hyperlipidemia, unspecified; Z80.3 Family history of malignant neoplasm of breast; Z79.82 Long term (current) use of aspirin; Z88.5 Allergy status to narcotic agent

== ENCOUNTER → 2024-04-18 | Outpatient (CLI) | payer BC, OTHER ==
--- NOTE | 2024-04-23 23:11 | MM ---
Reason for Exam: Screening (asymptomatic). Last mammogram was performed 1 year(s) and 6 month(s) ago. Patient History: Menarche at age 9. Patient has no children. Postmenopausal. Previous Atypical Lobular Hyperplasia at age 68. 07/31/2023, US breast localization RT on the Right side. 07/31/2023, MG pre op needle loc RT on the Right side. 07/31/2023, Benign MG pre op needle loc RT on the right side. 05/04/2023, US biopsy breast VAD RT on the Right side. 05/04/2023, US biopsy breast add'l VAD RT on the Right side. 05/04/2023, High risk MG stereo VAD BX RT on the right side. Paternal aunt had breast cancer, age 65. Risk Values: Clementine 5 year model risk: 6.1%. NCI Lifetime model risk: 17.6%. Prior Study Comparison: 10/13/2022 Right MG 3D work up w/cad RT, Unknown. 04/16/2023 Right MG 3D diag mammo w/cad RT, [facility]. 10/26/2023 Right MG 3D diag mammo w/cad RT, [facility]. Tissue Density: The breasts are heterogeneously dense, which may obscure small masses. Findings: Analyzed By CAD. Pattern is stable. There is a distortion and a prior lumpectomy site. Scattered benign calcifications are present bilaterally. There are some grouped calcifications in the posterior left cranial caudal view. These potentially could correlate with some calcifications on the left medial lateral view from 10/13/2022. These are not otherwise identified and may have been out of the field of view. Short-term follow-up is recommended. Right breast:No suspicious groups of microcalcifications, spiculated or lobular masses, architectural distortion or other secondary signs of malignancy are mammographically apparent. Overall Assessment: Probably benign, BI-RAD 3 Management: Diagnostic Mammogram of the left breast in 3 months. A negative mammogram report should not preclude additional follow up of suspicious palpable abnormalities. Patient should continue monthly self breast exam. A clinical breast exam by your physician is recommended on an annual basis and results should be correlated with mammographic findings. Note on Clementine scores and lifetime risk: 1. A Clementine score greater than 3% is considered moderate risk. If this is the case, consider specialist referral to assess eligibility for a risk reducing agent. 2. If overall lifetime risk for the development of breast cancer is 20% or higher, the patient may qualify for future screening with alternating mammogram and breast MRI. Electronically signed and approved by: Carlito Garcia D.O. Radiologis
== END | disposition home or self-care (01) ==
LOC: RADMAMWWP 11:45
PROVIDERS: ATTEND Surgery
DX: Z12.31 Encounter for screening mammogram for malignant neoplasm of breast (principal); Z80.3 Family history of malignant neoplasm of breast; Z78.0 Asymptomatic menopausal state
CPT/HCPCS: 77063; 77067

== ENCOUNTER → 2024-05-08 | Outpatient (CLI) | payer BC, OTHER ==
[2024-05-08 11:38] VITALS: BP 181/69; PULSE 81; RESP 17; TEMP 98.9
--- NOTE | 2024-05-08 11:47 | P.PN ---
Subjective Progress Note Date: 05/08/24 07/06/23 discordant ultrasound core biopsy right breast/atypical lobular hyperplasia right stero biopsy abnormal right breast mammogram and ultrasound; ultrasound core biopsy discordant, mammogram core biopsy atypical lobular hyperplasia Ashlie is a 68 year old white female seen initially in consultation for Dr. Licona regarding a radiographic abnormality in the right breast. She had a bilateral mammogram on 10-09-22; bilateral diagnostic mammograms were recommended. Returned on [id number] bilateral diagnostic mammogram. This showed the breast tissue to be heterogeneously dense with 2 well-circumscribed round oval masses in the posterior depth inner aspect left breast which were unchanged since 2016. In the right breast a 6 mm round circumscribed lesion persisted in the middle to posterior depth for which an ultrasound was recommended. Calcifications in the right breast were loosely grouped and felt to be not suspicious. Targeted ultrasound of the 12 o'clock position of the right breast revealed millimeter round hypoechoic avascular structure without posterior acoustic features. No convincing evidence for malignancy in either breast was identified Precautionary diagnostic right breast mammogram and ultrasound in 6 months was recommended. Was personally reviewed with Dr. Cardenas from radiology. The patient did not feel any new lumps masses or nodules of concern in either breast. She is complaining of some intermittent right nipple inversion. She is not complaining of any nipple discharge. 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 It was an open biopsy. She is not complaining of any infection or trauma in her breast. The patient on 04-16-23 underwent a right breast diagnositc mammogram and ultrasound. Stero biopay and ultrasound core biopsy recommended. These were done on 05-04-23. The patoholgy for the ultrasound core biopsy was discordant, reviewed with radiology and the stero biopsy atypical lobular hyperplasia. Tolerated the biopsies without difficulty. The genetic testing performed which showed a variant of on certain significance. We have discussed chemoprophylaxis and at this time the patient is waiting for the biopsy results from her needle localization and excision from the discordant lesion and the stereotactic core biopsy. Clementine risk 5 year 2.1% MCI lifetime risk: 6.7% 05-08-24 The patient on 07-31-23 underwent needle localization and excision of three sites in the right breast. The surgery had the following findings: Perioral areolar lesion right breast needle localization excision fibroadenoma focally involved lobular neoplasia, ALH/LCIS no invasive cancer Lateral breast lesion benign breast with fibrocystic change including moderate to focal usual type ductal hyperplasia, biopsy site was noted and a small intraductal papilloma not involving the margin Superior lesion right breast needle localization excision revealed removal of the needle as well as the may clip but the localizing clip was not noted in the specimen, several additional tissue excisions were performed without kareen ntification of the clip. This tissue was negative for malignancy although it did show nodular scar with fat necrosis. The patient has subsequently undergone a bilateral screening mammogram on . This was felt to be BI-RADS 3 and diagnostic mammogram of the left breast in 3 months was recommended. This was personally reviewed and interpreted. The patient is not Complaining of any new lumps masses or nodules of concern in either breast. 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 Based on her own history and family history she would have was advised to have chemoprophylaxis. Clementine risk evaluation: 5-year risk 6.1% NCI lifetime risk 17.6% Caffeine:3-4 cups of tea/day nicotine: none chocolate: daily BCP: none Family History: sister: pancreatic mother: pancreatic cancer father: lung brother: Lung, esophageal, brain, bladder smoker maternal grandmother: uterine Hormonal History: menarche: 9 G0 menopause: 56 hormone: none Surgical History: right breast biopsy three sites Medical History: diabetic HTN Social History: nicotine: none alcohol: occasional drugs:none - Constitutional Constitutional: Denies chills, Denies fever - EENT Comment: cataract bilateral Eyes: denies blurred vision, denies pain Ears: deny: decreased hearing, tinnitus Ears, nose, mouth and throat: Denies headache, Denies sore throat - Breasts Breasts: bilateral: as per HPI - Cardiovascular Cardiovascular: Denies chest pain, Denies shortness of breath - Respiratory Respiratory: Denies cough - Gastrointestinal Gastrointestinal: Denies abdominal pain, Denies diarrhea, Denies nausea, Denies vomiting - Genitourinary (Female) Genitourinary: Denies dysuria, Denies hematuria - Menstruation Menstruation: Reports as per HPI - Musculoskeletal Musculoskeletal: Denies myalgias - Integumentary Integumentary: Denies pruritus, Denies rash - Neurological Neurological: Reports numbness, Denies weakness - Psychiatric Psychiatric: Denies anxiety, Denies depression - Endocrine Endocrine: Reports as per HPI - Hematologic/Lymphatic Comment: none - Allergic/Immunologic Allergic/Immunologic: Reports seasonal allergies Medications and Allergies Home Medications Medication Instructions Recorded Confirmed Type Aspirin [Children's Aspirin] 81 mg PO DAILY 02/02/23 02/02/23 History Atorvastatin [Lipitor] 40 mg PO DAILY 02/02/23 02/02/23 History Budesonide [Pulmicort] 1 spray NASAL DAILY 02/02/23 02/02/23 History Diltiazem Cd [Cardizem CD] 240 mg PO DAILY 02/02/23 02/02/23 History Levocetirizine Dihydrochloride 5 mg PO DAILY 02/02/23 02/02/23 History [Xyzal] Montelukast [Singulair] 10 mg PO DAILY 02/02/23 02/02/23 History Multivitamin/Iron/Folic Acid 1 tab PO DAILY 02/02/23 02/02/23 History [Centrum Adults Tablet] Pantoprazole Sodium 40 mg PO DAILY 02/02/23 02/02/23 History hydrALAZINE HCL 50 mg PO DAILY 02/02/23 02/02/23 History Objective - Vital Signs Vital signs: Intake & Output 05/07/24 05/08/24 05/08/24 18:59 06:59 18:59 Weight 86.183 kg - Constitutional General appearance: Present: cooperative - EENT Eyes: Present: EOMI ENT: Present: hearing grossly normal - Neck Neck: Present: normal ROM - Respiratory Respiratory: bilateral: CTA - Cardiovascular Heart sounds: normal: S1, S2 - Integumentary Integumentary: Present: normal turgor - Musculoskeletal Musculoskeletal: Present: gait normal - Psychiatric Psychiatric: Present: A&O x's 3, appropriate affect, intact judgment & insight - Additional findings Additional findings: Breast Exam: BRA: 42C Inspection: bilateral grade 2/3 ptosis palpation: right breast: Multi-positional exam dense breast fibrocystic changes no dominant masses or nodules of concern Right axilla: No adenopathy of concern Left breast: Multi-positional exam fibrocystic changes no dominant masses or nodules of concern Left axilla: No adenopathy of concern Assessment and Plan Assessment: Impression: right breast: 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 Fall on tamoxifen Plan: Continue tamoxifen Continue close surveillance Repeat left breast mammogram in 3 months with examination at that time Patient to follow-up sooner any questions or concerns CC: Dr. Licona
== END ==
LOC: WWCWWP 10:33
PROVIDERS: ATTEND Surgery
DX: N60.91 Unspecified benign mammary dysplasia of right breast (principal); I10 Essential (primary) hypertension; E11.9 Type 2 diabetes mellitus without complications

== ENCOUNTER → 2024-08-07 | Outpatient (CLI) | payer BC, OTHER ==
--- NOTE | 2024-08-07 14:07 | MM ---
Reason for Exam: Follow-up at short interval from prior study. Last screening mammogram was performed 4 month(s) ago. Patient History: Menarche at age 9. Patient has no children. Postmenopausal. Previous Atypical Lobular Hyperplasia at age 68. 07/31/2023, US breast localization RT on the Right side. 07/31/2023, MG pre op needle loc RT on the Right side. 07/31/2023, Benign MG pre op needle loc RT on the right side. 05/04/2023, US biopsy breast VAD RT on the Right side. 05/04/2023, US biopsy breast add'l VAD RT on the Right side. 05/04/2023, High risk MG stereo VAD BX RT on the right side. Paternal aunt had breast cancer, age 65. Risk Values: Clementine 5 year model risk: 6.1%. NCI Lifetime model risk: 16.9%. Prior Study Comparison: 04/16/2023 Right MG 3D diag mammo w/cad RT, [facility]. 10/26/2023 Right MG 3D diag mammo w/cad RT, [facility]. 04/18/2024 Bilateral MG 3D screening mammo w/cad, [facility]. Tissue Density: Left: The breasts are heterogeneously dense, which may obscure small masses. Findings: Analyzed By CAD. Vascular calcifications are redemonstrated far posteriorly left breast. No suspicious clusters of microcalcifications are present. Chronic nodularity is stable dating back to 2019. Overall Assessment: Benign, BI-RAD 2 Management: Screening Mammogram of both breasts in 9 months. . Results were given to the patient verbally at the time of exam. Patient should continue monthly self-breast exams. A clinical breast exam by your physician is recommended on an annual basis. This exam should not preclude additional follow-up of suspicious palpable abnormalities. Note on Clementine scores and lifetime risk: 1. A Clementine score greater than 3% is considered moderate risk. If this is the case, consider specialist referral to assess eligibility for a risk reducing agent. 2. If overall lifetime risk for the development of breast cancer is 20% or higher, the patient may qualify for future screening with alternating mammogram and breast MRI. Electronically signed and approved by: Bob Beebe M.D. Radiologis
== END | disposition home or self-care (01) ==
LOC: RADMAMWWP 13:34
PROVIDERS: ATTEND Surgery
DX: R92.8 Other abnormal and inconclusive findings on diagnostic imaging of breast
CPT/HCPCS: 77061; 77065

== ENCOUNTER → 2025-05-04 | Outpatient (CLI) | payer BC, OTHER ==
--- NOTE | 2025-05-04 15:15 | MM ---
Reason for Exam: Screening (asymptomatic). Last mammogram was performed 1 year(s) and 1 month(s) ago. Patient History: Menarche at age 9. Patient has no children. Postmenopausal. Previous Atypical Lobular Hyperplasia at age 68. 07/31/2023, US breast localization RT on the Right side. 07/31/2023, MG pre op needle loc RT on the Right side. 07/31/2023, Benign MG pre op needle loc RT on the right side. 05/04/2023, US biopsy breast VAD RT on the Right side. 05/04/2023, US biopsy breast add'l VAD RT on the Right side. 05/04/2023, High risk MG stereo VAD BX RT on the right side. Paternal aunt had breast cancer, age 65. Risk Values: Clementine 5 year model risk: 6.1%. NCI Lifetime model risk: 16.1%. Prior Study Comparison: 10/26/2023 Right MG 3D diag mammo w/cad RT, [facility]. 04/18/2024 Bilateral MG 3D screening mammo w/cad, [facility]. 08/07/2024 Left MG 3D diag mammo w/cad LT, [facility]. Tissue Density: The breasts are heterogeneously dense, which may obscure small masses. Findings: Analyzed By CAD. Diminished size to right breast with surgical clips and distortion consistent with posttreatment change is redemonstrated. Stable small circumscribed masses throughout the bilateral breasts. A few tiny benign-appearing round calcifications are redemonstrated scattered throughout the left breast. No suspicious new mass or distortion in either breast. Overall Assessment: Benign, BI-RAD 2 Management: Screening Mammogram of both breasts in 1 year. . Patient should continue monthly self-breast exams. A clinical breast exam by your physician is recommended on an annual basis. This exam should not preclude additional follow-up of suspicious palpable abnormalities. Note on Clementine scores and lifetime risk: 1. A Clementine score greater than 3% is considered moderate risk. If this is the case, consider specialist referral to assess eligibility for a risk reducing agent. 2. If overall lifetime risk for the development of breast cancer is 20% or higher, the patient may qualify for future screening with alternating mammogram and breast MRI. [facility], , 05/04/2025 3:12 PM. Electronically signed and approved by: Andrea Keys M.D.
== END | disposition home or self-care (01) ==
LOC: RADMAMWWP 14:27
PROVIDERS: ATTEND Surgery
DX: Z12.31 Encounter for screening mammogram for malignant neoplasm of breast (principal); R92.333 Mammographic heterogeneous density, bilateral breasts; Z78.0 Asymptomatic menopausal state; Z80.3 Family history of malignant neoplasm of breast
CPT/HCPCS: 77063; 77067

== ENCOUNTER → 2025-06-05 | Outpatient (CLI) | payer BC, OTHER ==
[2025-06-05 12:02] VITALS: BP 162/65; PULSE 72; RESP 17; TEMP 97.9
--- NOTE | 2025-06-05 12:08 | P.PN ---
Subjective Progress Note Date: 06/05/25 Principal diagnosis: high risk breast cancer 06-05-25 07/06/23 discordant ultrasound core biopsy right breast/atypical lobular hyperplasia right stero biopsy abnormal right breast mammogram and ultrasound; ultrasound core biopsy discordant, mammogram core biopsy atypical lobular hyperplasia Ashlie is a 68 year old white female seen initially in consultation for Dr. Licona regarding a radiographic abnormality in the right breast. She had a bilateral mammogram on 10-09-22; bilateral diagnostic mammograms were recommended. Returned on [id number] bilateral diagnostic mammogram. This showed the breast tissue to be heterogeneously dense with 2 well-circumscribed round oval masses in the posterior depth inner aspect left breast which were unchanged since 2016. In the right breast a 6 mm round circumscribed lesion persisted in the middle to posterior depth for which an ultrasound was recommended. Calcifications in the right breast were loosely grouped and felt to be not suspicious. Targeted ultrasound of the 12 o'clock position of the right breast revealed millimeter round hypoechoic avascular structure without posterior acoustic features. No convincing evidence for malignancy in either breast was identified Precautionary diagnostic right breast mammogram and ultrasound in 6 months was recommended. Was personally reviewed with Dr. Cardenas from radiology. The patient did not feel any new lumps masses or nodules of concern in either breast. She is complaining of some intermittent right nipple inversion. She is not complaining of any nipple discharge. 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 It was an open biopsy. She is not complaining of any infection or trauma in her breast. The patient on 04-16-23 underwent a right breast diagnositc mammogram and ultrasound. Stero biopay and ultrasound core biopsy recommended. These were done on 05-04-23. The patoholgy for the ultrasound core biopsy was discordant, reviewed with radiology and the stero biopsy atypical lobular hyperplasia. Tolerated the biopsies without difficulty. The genetic testing performed which showed a variant of on certain significance. We have discussed chemoprophylaxis and at this time the patient is waiting for the biopsy results from her needle localization and excision from the discordant lesion and the stereotactic core biopsy. Clementine risk 5 year 2.1% MCI lifetime risk: 6.7% 05-08-24 The patient on 07-31-23 underwent needle localization and excision of three sites in the right breast. The surgery had the following findings: Perioral areolar lesion right breast needle localization excision fibroadenoma focally involved lobular neoplasia, ALH/LCIS no invasive cancer Lateral breast lesion benign breast with fibrocystic change including moderate to focal usual type ductal hyperplasia, biopsy site was noted and a small intraductal papilloma not involving the margin Superior lesion right breast needle localization excision revealed removal of the needle as well as the may clip but the localizing clip was not noted in the specimen, several additional tissue excisions were performed without identification of the clip. This tissue was negative for malignancy although it did show nodular scar with fat necrosis. The patient has subsequently undergone a bilateral screening mammogram on 04-18-2024. This was felt to be BI-RADS 3 and diagnostic mammogram of the left breast in 3 months was recommended. This was personally reviewed and interpreted. The patient is not Complaining of any new lumps masses or nodules of concern in either breast. 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 Based on her own history and family history she would have was advised to have chemoprophylaxis. 06-05-25 Ashlie is a 70 patient had increased risk for breast cancer. She had an open bio psy performed on 07 31 25 which revealed atypical lobular hyperplasia/lobular carcinoma in situ. 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 Based on her own history and family history she was advised to have chemoprophylaxis. She is presently on tamoxifen and following with medical oncology. She had a recent bilateral mammogram on 05-04-25 which was BIRAD 2 and personally reviewed. Ashlie has not noted any new lumps masses or nodules of concern in either breast note 05-26-25 Dr. Fall reviewed patient on tamoxifen for high risk Clementine risk evaluation: 5-year risk 6.1% NCI lifetime risk 16.1% Caffeine:3-4 cups of tea/day nicotine: none chocolate: daily BCP: none Family History: sister: pancreatic mother: pancreatic cancer father: lung brother: Lung, esophageal, brain, bladder smoker maternal grandmother: uterine Hormonal History: menarche: 9 G0 menopause: 56 hormone: none Surgical History: right breast biopsy three sites Medical History: diabetic HTN glaucoma Social History: nicotine: none alcohol: occasional drugs:none - Constitutional Constitutional: Denies chills, Denies fever - EENT Comment: cataract bilateral Eyes: denies blurred vision, denies pain Ears: deny: decreased hearing, tinnitus Ears, nose, mouth and throat: Denies headache, Denies sore throat - Breasts Breasts: bilateral: as per HPI - Cardiovascular Cardiovascular: Denies chest pain, Denies shortness of breath - Respiratory Respiratory: Denies cough - Gastrointestinal Gastrointestinal: Denies abdominal pain, Denies diarrhea, Denies nausea, Denies vomiting - Genitourinary (Female) Genitourinary: Denies dysuria, Denies hematuria - Menstruation Menstruation: Reports as per HPI - Musculoskeletal Musculoskeletal: Denies myalgias - Integumentary Integumentary: Denies pruritus, Denies rash - Neurological Neurological: Reports numbness, Denies weakness - Psychiatric Psychiatric: Denies anxiety, Denies depression - Endocrine Endocrine: Reports as per HPI - Hematologic/Lymphatic Comment: none - Allergic/Immunologic Allergic/Immunologic: Reports seasonal allergies Medications and Allergies Home Medications Medication Instructions Recorded Confirmed Type Aspirin [Children's Aspirin] 81 mg PO DAILY 02/02/23 02/02/23 History Atorvastatin [Lipitor] 40 mg PO DAILY 02/02/23 02/02/23 History Budesonide [Pulmicort] 1 spray NASAL DAILY 02/02/23 02/02/23 History Diltiazem Cd [Cardizem CD] 240 mg PO DAILY 02/02/23 02/02/23 History Levocetirizine Dihydrochloride 5 mg PO DAILY 02/02/23 02/02/23 History [Xyzal] Montelukast [Singulair] 10 mg PO DAILY 02/02/23 02/02/23 History Multivitamin/Iron/Folic Acid 1 tab PO DAILY 02/02/23 02/02/23 History [Centrum Adults Tablet] Pantoprazole Sodium 40 mg PO DAILY 02/02/23 02/02/23 History hydrALAZINE HCL 50 mg PO DAILY 02/02/23 02/02/23 History Objective - Constitutional General appearance: Present: cooperative - EENT Eyes: Present: EOMI ENT: Present: hearing grossly normal - Neck Neck: Present: normal ROM - Respiratory Respiratory: bilateral: CTA - Cardiovascular Rhythm: regular Heart sounds: normal: S1, S2 - Integumentary Integumentary: Present: normal turgor - Musculoskeletal Musculoskeletal: Present: gait normal - Psychiatric Psychiatric: Present: A&O x's 3, appropriate affect, intact judgment & insight - Additional findings Additional findings: Breast Exam: BRA: 42C Inspection: bilateral grade 2/3 ptosis palpation: right breast: Multi-positional exam dense breast fibrocystic changes no dominant masses or nodules of concern Right axilla: No adenopathy of concern Left breast: Multi-positional exam fibrocystic changes no dominant masses or nodules of concern Left axilla: No adenopathy of concern Assessment and Plan Assessment: Impression: right breast: 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 Fall on tamoxifen Plan: Continue tamoxifen Continue close surveillance bilateral mammogram in 1 year with examination Patient to follow-up sooner any questions or concerns CC: Dr. Licona
== END ==
LOC: WWCWWP 11:38
PROVIDERS: ATTEND Surgery
DX: N60.91 Unspecified benign mammary dysplasia of right breast (principal); Z79.810 Long term (current) use of selective estrogen receptor modulators (SERMs)